=== PATIENT | female | born 2005 | race Caucasian/White ===

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

== ENCOUNTER 2023-05-31 14:17 | Emergency (ER) | payer OTHER ==
[~2023-05-31] VITALS: Ht 172.7 cm; Wt 79.9 kg
[~2023-05-31 14:17] MED LIST: ALTAVERA1 EACH PO; OMEPRAZOLE20 MG PO; ZOLOFT100 MG PO
[2023-05-31 14:45] LABS: BILIRUBIN, URINE NEGATIVE (negative); BLOOD/HGB, URINE LARGE (Negative); KETONE, URINE NEGATIVE (Negative); LEUK ESTERASE, URINE SMALL (negative); NITRITE, URINE NEGATIVE (negative)
[2023-05-31 14:52] LABS: BACTERIA, URINE RARE /hpf (negative); CASTS, URINE NONE SEEN \\lpf; CRYSTALS, URINE NONE SEEN (0-1+); EPITHELIAL CELLS, URINE SQUAMOUS 2+ /lpf (0-1+)
[2023-05-31 14:53] LABS: COLLECTION TYPE, URINE CLEAN CATCH; REFLEX CULTURE, URINE No (No)
[2023-05-31 15:36] LABS: BASOPHILS 0.8 % (0-2); EOSINOPHILS 3.5 % (0-6); HEMATOCRIT 40.6 % (35.0-50.0); HEMOGLOBIN 13.8 g/dL (12.0-18.0); LYMPHOCYTES 36.9 % (24-44); MCH 28.7 (27-36); MCHC 34.1 g/dl (30-36); MCV 84.3 fl (81-99); MONOCYTES 6.9 % (0-12); NEUTROPHILS 51.9 % (39-80); PLATELET COUNT 223 K/uL (140-440); RBC 4.81 M/ul (4.3-5.7); RDW 14.1 (10.5-15.0)
[2023-05-31 15:53] LABS: ALBUMIN 3.6 g/dL (3.4-5.0); ALBUMIN/GLOBULIN RATIO 0.82 (1.1-2.4); ANION GAP 15.4 (7-21); BILIRUBIN, TOTAL 0.3 ng/dL (0.2-1.0); BUN/CREATININE RATIO 7.29 (6.0-28.6); CALCIUM 9.1 mg/dL (8.5-10.1); CREATININE, SERUM 0.96 mg/dL (0.55-1.02); POTASSIUM 3.4 mmol/L (3.5-5.1)
[2023-05-31 17:07] LABS: N. GONORRRHOEAE BY PCR NOT DETECTED (NOT DETECT)
== END 2023-05-31 18:16 | disposition home or self-care (01) ==
LOC: ED 14:17
PROVIDERS: Emergency Medicine
DX: R10.2 Pelvic and perineal pain (principal); F43.10 Post-traumatic stress disorder, unspecified; F50.9 Eating disorder, unspecified; Z79.899 Other long term (current) drug therapy; Z88.7 Allergy status to serum and vaccine; Z32.02 Encounter for pregnancy test, result negative
CPT/HCPCS: 36415; 80053; 81001; 84703; 85025; 99284